=== PATIENT | male | born 1970 | race Caucasian/White ===

== ENCOUNTER 2021-07-08 15:08 | Outpatient (CLI) | payer BC ==
[2021-07-08 16:44] LABS: #Basophils 0.1 10x3/uL (0.0-0.2); #Eosinphils 0.2 10x3/uL (0.0-0.5); #Monocytes 0.7 10x3/uL (0.0-1.1); #Neutrophils 5.1 10x3/uL (1.5-8.4); %Basophils 0.9 % (0.0-2.0); %Lymphocytes 23.4 % (18.0-47.0); %Monocytes 9.1 % (0.0-10.0); %Neutrophils 64.3 % (40.0-75.0); Hemoglobin 16.5 g/dL (13.5-17.5); Mean Corpuscular HGB CONC 33.6 g/dL (32.0-36.0); Mean Corpuscular Hemoglobin 29.6 pg (27.0-33.0); Mean Platelet Volume 9.6 fl (7.4-10.4); Platelet Count 266 10x3/uL (150-450); RBC Distribution Width 12.4 % (11.5-14.5); Red Blood Cell (RBC) Count 5.58 10x6/uL (4.32-5.72); White Blood Cell (WBC) Count 7.9 10x3/uL (3.5-10.5)
[2021-07-08 17:04] LABS: Anion Gap 15 mmol/L (10-20); BUN (Urea Nitrogen) 17 mg/dL (8.4-25.7); Calc. Creatinine Clearance 0 mL/min (70-130); Calcium 9.4 mg/dL (7.8-10.44); Carbon Dioxide 25 mmol/L (22-29); Chloride 103 mmol/L (98-107); Glucose 77 mg/dL (70-105); Potassium 4.2 mmol/L (3.5-5.1); Sodium 139 mmol/L (136-145)
[2021-07-09 00:25] LABS: SARS-CoV-2 PCR by NAA Not Detected (NotDetected)
== END 2021-07-08 15:09 | disposition home or self-care (01) ==
LOC: LABBT 15:08
PROVIDERS: ATTEND Specialist
DX: Z01.818 Encounter for other preprocedural examination (principal); K40.90 Unilateral inguinal hernia, without obstruction or gangrene, not specified as recurrent; Z20.822 Contact with and (suspected) exposure to COVID-19
CPT/HCPCS: 80048; 85025; 93005; 93010; U0003; U0005

== ENCOUNTER 2021-07-11 07:48 | Day surgery (SDC) | payer BC ==
[2021-07-08 12:52] VITALS: BMI 22.8
[2021-07-11] MEDS ORDERED: Gabapentin 300 MG CAP ONE (08:09)
[2021-07-11] MEDS ORDERED: Acetaminophen 500 MG TAB ONE (08:09)
[2021-07-11] MEDS ORDERED: Ketorolac Tromethamine 30 MG/ML VIAL ONE (08:09)
[2021-07-11] MEDS ORDERED: Lidocaine 1% w/Epinephrine 1:100K 20 ML VIAL ONE (09:48)
[2021-07-11] MEDS ORDERED: Bupivacaine 0.25% HCL 30 ML VIAL ONE (09:48)
[2021-07-11] MEDS ORDERED: Midazolam HCl 2 mg/2 ml Vial ONE (09:54)
[2021-07-11] MEDS ORDERED: HYDROmorphone 2 MG/ML VIAL ONE (09:54)
[2021-07-11] MEDS ORDERED: Fentanyl 100 MCG/2 ML VIAL ONE (09:54)
[2021-07-11] MEDS ORDERED: ceFAZolin (BATCH) 2 GM/100 ML BAG ONE (10:01)
[2021-07-11] MEDS ORDERED: Glycopyrrolate 0.2 MG/ML 5 ML SYRINGE ONE (10:13)
[2021-07-11] MEDS ORDERED: Ondansetron PF 4 MG/2 ML Vial ONE (10:13)
[2021-07-11] MEDS ORDERED: PROPOFOL 200 MG/20 ML VIAL ONE (10:13)
[2021-07-11] MEDS ORDERED: Rocuronium Bromide 10 MG/ML (10ML VIAL) ONE (10:13)
[2021-07-11] MEDS ORDERED: ePHEDrine 50 MG/ML VIAL ONE (10:13)
[2021-07-11] MEDS ORDERED: Lidocaine 1% PF 5 ML VIAL ONE (10:13)
[2021-07-11] MEDS ORDERED: Dexamethasone 20 MG/5 ML VIAL ONE (10:13)
== END 2021-07-11 13:45 | disposition home or self-care (01) ==
LOC: SDC 07:48
PROVIDERS: ATTEND Specialist
PROC: 0YU64JZ Supplement Left Inguinal Region with Synthetic Substitute, Percutaneous Endoscopic Approach (ICD-10-PCS; principal; 2021-07-11)
DX: K40.21 Bilateral inguinal hernia, without obstruction or gangrene, recurrent (principal); Z86.16 Personal history of COVID-19
CPT/HCPCS: C1781; J0690; J1100; J1170; J1885; J2250; J2405; J2704; J3010; J3490; S0020